=== PATIENT | female | born 1950 | race Caucasian/White ===

== ENCOUNTER → 2018-09-07 12:11 | Outpatient (CLI) | payer MEDICARE, OTHER ==
[~2018-09-07 12:11] MED LIST: HYDROCODON-ACE1 EAC7 PO; MOBIC7.5 MG PO; NEURONTIN600 MG PO; NORCO 10-325 TA1 TAB PO; WELLBUTRIN XL150 M1 PO
[2018-09-08 01:17] VITALS: BMI 25.1
== END | disposition home or self-care (01) ==
LOC: D.CT 12:00
DX: R10.31 Right lower quadrant pain (principal)

== ENCOUNTER 2018-09-07 14:31 | Observation (INO) | payer MEDICARE, OTHER ==
[~2018-09-07] VITALS: Ht 154.9 cm; Wt 60.5 kg
[2018-09-07] MEDS ORDERED: HYDROCODON-ACE1 EAC7 PO (15:08)
[2018-09-07] MEDS ORDERED: WELLBUTRIN XL150 M1 PO (15:08)
[2018-09-07] MEDS ORDERED: MOBIC7.5 MG PO (15:09)
[2018-09-07] MEDS ORDERED: NEURONTIN600 MG PO (15:09)
[2018-09-07] MEDS ORDERED: NORCO 10-325 TA1 TAB PO (15:09)
[2018-09-07 15:52] LABS: BASOPHILS 0.2 % (0-2); EOSINOPHILS 2.2 % (0-7); HEMATOCRIT 40.2 % (36.0-48.0); HEMOGLOBIN 13.3 g/dL (12-16); LYMPHOCYTES 23.6 % (15-50); MCH 30.6 pg (26.0-34.0); MCHC 33.1 g/dL (31.0-37.0); MCV 92.4 fL (80.0-100.0); MEAN PLATELET VOLUME 10.1 fL (7.4-10.4); MONOCYTES 9.6 % (2-11); NEUTROPHILS 64.4 % (40-80); PLATELET COUNT 143 10x3/uL (130-400); RBC 4.35 10x6/uL (4.00-5.40); WBC 4.5 10x3/uL (4.8-10.8)
[2018-09-07 16:04] LABS: APPEARANCE CLEAR (CLEAR); COLOR YELLOW (YELLOW)
[2018-09-07 16:05] LABS: BILIRUBIN NEGATIVE (NEGATIVE); GLUCOSE NEGATIVE (NEGATIVE); KETONE NEGATIVE (NEGATIVE); NITRITE NEGATIVE (NEGATIVE); PROTEIN NEGATIVE (NEGATIVE); UROBILINOGEN NORMAL (NORMAL)
[2018-09-07 16:11] LABS: ALBUMIN 3.3 g/dL (3.4-5.0); ALKALINE PHOSPHATASE 60 U/L (46-116); ALT (SGPT) 21 U/L (10-68); BILIRUBIN - TOTAL 0.26 mg/dL (0.2-1.3); CALC OSMOLALITY 281 mosm/kg (275-300); CALCIUM 8.9 mg/dL (8.5-10.1); CARBON DIOXIDE 32.9 mmol/L (21.0-32.0); CHLORIDE - SERUM 102 mmol/L (98-107); CREATININE - SERUM 0.7 mg/dL (0.6-1.3); GLUCOSE 95 mg/dL (74-106); PROTEIN - SERUM 7.4 g/dL (6.4-8.2); SODIUM 142 mmol/L (136-145); UREA NITROGEN 11 mg/dL (7-18); eGFR NON AFRICAN AMERICAN 88 mL/min (90-120)
[2018-09-07 19:32] VITALS: BP 144/75
--- NOTE | 2018-09-07 22:00 | NUR ---
PT IV SITE TO RIGHT AC RED AND PAINFUL TO TOUCH. DC'D W/ CATHETER TIP INTACT. RESITED 20G IV LEFT AC X1 ATTEMPT. TOLERATED WELL. NO OTHER NEEDS AT THIS TIME. CONCUR W/ KNIFER UP ASSESSMENT. CL IN REACH, FAMILY AT BEDSIDE. WILL CONTINUE TO MONITOR
[2018-09-08 00:59] VITALS: BP 140/80
[2018-09-08 01:17] VITALS: Ht 154.9 cm; Wt 60.5 kg
--- NOTE | 2018-09-08 07:26 | NUR ---
BLOOD ON GOWN, 3 INCHES IN DIAMETER. PT STATES SHE RIPPED HER GOWN FROM HER INCISION BY ACCIDENT, CAUSING BLEEDING. LAP SITE UNDER NAVAL CLEANED AND REINFORCED WITH STERI-STRIPS. NO FURTHER BLEEDING NOTED, WILL CONTINUE TO MONITOR.
--- NOTE | 2018-09-08 08:43 | NUR ---
SPINNING FRAME TENDER NOTE-SITTING UP IN BED EATING REGULAR TRAY. STATES NO NAUSEA AND PAIN IS CONTROLLED. LAP SITES X 3 CLEAN AND DRY. HOPING FOR DISCHARGE TODAY. ENCOURAGED PT TO BE UP IN CHATTERJEE AND SITTING IN CHAIR. WILL CONTINUE TO MONITOR
[2018-09-08 08:49] VITALS: BP 116/56
[2018-09-08] MEDS ORDERED: NORCO 10-325 TA1 TAB PO (13:04)
[2018-09-08 15:58] VITALS: BP 105/67
--- NOTE | 2018-09-09 12:55 | OP ---
PATIENT NAME: JEANNETTE KENNEY MEDICAL RECORD: [id number] :46 LOCATION:[id number] ADMISSION DATE:09/07/18 SURGEON: MARIELLA BYRD MD DATE OF OPERATION: 09/07/2018 PREOPERATIVE DIAGNOSIS: Acute appendicitis with localized peritonitis. POSTOPERATIVE DIAGNOSIS: Acute appendicitis with localized peritonitis. PROCEDURE: Laparoscopic appendectomy. SURGEON: Mariella Byrd MD ENERGY CONSERVATION SPECIALIST: None. BLOOD LOSS: Minimal. ANESTHESIA: General. COMPLICATIONS: None. The risks, possible complications and alternatives to the procedure were explained to the patient. She elects to proceed. The discussion specifically included, but was not limited to, bleeding requiring emergency reoperation, infection, intestinal injury as well as staple line leakage. OPERATIVE COURSE: The patient was conveyed to the operating room urgently on 09/07/2018. General anesthesia was induced by the anesthesia staff. The abdomen was sterilely prepped and draped. A small skin shalonda was accomplished in the left upper quadrant. Veress needle was inserted through the skin shalonda into the peritoneal cavity. CO2 insufflation was begun. Once a sufficient pneumoperitoneum had been achieved, a 5-mm trocar was inserted through an incision in the left lower quadrant. Under direct internal vision utilizing a television camera, a 12-mm trocar was inserted through an incision at the umbilicus. Another 5-mm trocar was inserted through an incision in the right lower quadrant. An abdominal survey was undertaken. They were Dyad-Npbb-Seipyy adhesions over the convexity of the liver. These were taken down with the laparoscopic EnSeal device in order to help prevent a bowel obstruction in the future as I could envision where a bowel could have gotten wrapped around some of these filmy adhesions. I identified the appendix. It was retrocecal although it did not have this appearance on the CT scan. I took down the white line of Toldt inferiorly. I rotated the cecum medially. I then dissected in the mesoappendix. I placed an Endo-NOELLE type stapler with a blue load across the tip of the cecum and then fired. The mesoappendix was then taken down with the laparoscopic EnSeal device. The appendix was placed within a bag retrieval device and was withdrawn through the umbilical fascia defect. The 12-mm trocar was placed and the abdomen reinsufflated. I irrigated and aspirated in the right lower quadrant. There was no bleeding even at low pressure of 8. The 12-mm trocar was removed. The fascia at the umbilicus was closed with the Petros-Gary suture closure device and 0 Vicryl sutures. The skin at the OPERATIVE REPORT [id number] JEANNETTE KENNEY S umbilicus was closed with interrupted 4-0 Vicryl Rapide sutures. The other 2 trocar sites were closed with interrupted intracuticular 3-0 Vicryl suture. Benzoin and Steri-Strips were applied. The patient was then extubated and conveyed to the post-anesthesia care unit where she was in stable condition. I will plan that she will be kept in the hospital overnight and then dismissed home tomorrow. TRANSINT:[id number] Voice Confirmation ID: [id number] DOCUMENT ID: [id number] MARIELLA BYRD MD at 1255 CC: [id number] DICTATION DATE: 09/08/181753 SLASHER TENDER HELPER: 09/09/18 0002 DIS IN 09/08/18 [facility] [address] [place] [address]
== END 2018-09-08 16:18 | disposition home or self-care (01) ==
LOC: D.ER 14:31 → D.EDHOLD 16:37 → D.MS 16:37 → OBSVTIME 16:37 → D.MS 18:38 → D.SDCHOLD 18:43 → D.MS 19:21
PROVIDERS: Family Medicine; ADMIT Surgery
DX: K35.30 Acute appendicitis with localized peritonitis, without perforation or gangrene (principal)